=== PATIENT | male | born 1940 | race Asian ===

== ENCOUNTER 2018-11-26 00:13 | Emergency (ER) | payer MEDICARE, OTHER ==
[~2018-11-26] VITALS: Ht 162.6 cm; Wt 58.1 kg
[2018-11-26 00:13] VITALS: BP 173/68
[~2018-11-26 00:13] MED LIST: AZITHROMYCIN250 MG ORAL; IBUPROFEN600 MG ORAL
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
[2018-11-26] MEDS ORDERED: HYDROcodone/Acetamin 5/325 tab ORAL ONE (00:45)
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
[2018-11-26 01:20] VITALS: BP 153/70
--- NOTE | 2018-11-26 01:23 | NUR ---
ED Nurse Note: Patient relaxing with at bedside. No s/s of acute distress. Patient reports no pain at this time, vital signs stable and updated.
--- NOTE | 2018-11-26 01:48 | NUR ---
ED Nurse Note: Patient went down for Ct scans.
[2018-11-26 03:17] VITALS: BP 152/61
[2018-11-26] MEDS ORDERED: HYDROCODON-ACE1 EA15 ORAL (03:19)
[2018-11-26] MEDS ORDERED: IBUPROFEN600 MG ORAL (03:19)
--- NOTE | 2018-11-26 03:22 | NUR ---
ED Nurse Note: Patient has been cleared for discharge by ERMD. Patient verbalized understanding of discharge instructions. ID band removed. vital signs updated prior to departure. patient departed with all belongings.
--- NOTE | 2018-11-26 03:24 | NUR ---
ED Nurse Note: Patient will physically depart once results are back for his .
[2018-11-26 04:02] VITALS: BP 152/61
--- NOTE | 2018-11-26 09:26 | Diagnostic Imaging Report ---
Indication: Neck pain. Technique: Continuous helical imaging of the cervical spine was obtained transaxially from the skull base to the upper thoracic spine. 2-D coronal and sagittal reformatted images were obtained. Automatic Exposure Control was utilized. Total Dose length Product (DLP): 310.[address] Dose Index Volume (CTDIvol): 13.3 mGy Comparison: None Findings: There is no acute fracture or malalignment identified. There is no soft tissue swelling identified. Moderate uncovertebral arthritis is demonstrated at multiple levels. Some of the intervertebral discs show narrowing and osteophytes especially C5-6. This level also notable for mild foraminal stenosis. The bones are osteopenic. Calcification of the carotid arteries noted at the level the cervical spine in the neck. Impression: No acute injury Moderate spondylosis Atherosclerotic vascular disease [facility] has communicated the preliminary results to the Emergency Department. Their findings are largely concordant with this report. The CT scanner at [facility] is accredited by the [employer] and the scans are performed using dose optimization techniques as appropriate to a performed exam including Automatic Exposure control.
--- NOTE | 2018-11-26 09:34 | Diagnostic Imaging Report ---
Indication: Chest pain. Trauma Technique: Continuous helical transaxial imaging of the chest was obtained from the thoracic inlet to the upper abdomen. No intravenous contrast was administered. Coronal 2-D reformats were also obtained. Total Dose length Product (DLP): 1177.[address] Dose Index Volume (CTDIvol): 35.39 mGy Comparison: CTA chest 04/09/2016 Findings: There is a posterior dependent atelectasis seen is groundglass opacities and some linear reticular densities. The remainder of the lungs are essentially clear with the exception of some mild prominence of interstitium which was seen previously and likely chronic. There is no pneumothorax or compelling evidence for lung injury such as a contusion. There is no rib fracture, hematoma or evidence of a pleural effusion. The mediastinum is essentially clear without evidence of fluid or hematoma. The aorta is mildly calcified and ectatic. Preliminary reading suggested the possibility of a lung contusion at the apex of the right lung. While this is not entirely excludable, there are no associated injuries. This is a somewhat unusual location for lung contusion as well. Please correlate clinically. Suggest further evaluation and follow-up if needed. There is a pulmonary nodule that is about a centimeter noncalcified at the right lung base. This is seen on the 2016 examination and appears unchanged. The nodule may be disregarded given stability exceeding 2 years. Multiple gallstones are present. Accessory spleen noted. IMPRESSION: No compelling evidence for acute injury involving the chest. Patchy interstitial prominence within the lungs likely chronic Mild posterior basal atelectasis Gallstones Solitary pulmonary nodule in the right lung base unchanged from 2016. This may be disregarded per Fleischner Society criteria. Atherosclerotic vascular disease. The CT scanner at [facility] is accredited by the [employer] and the scans are performed using dose optimization techniques as appropriate to a performed exam including Automatic Exposure control.
--- NOTE | 2018-11-26 10:05 | Diagnostic Imaging Report ---
Indication: Headache and trauma Technique: Contiguous 5 mm thick transaxial imaging of the head obtained in a Siem[employer] Sensation [address] scanner. Soft tissue and bone windows generated. Automatic Exposure Control was utilized. Total Dose length Product (DLP): 1442.[address] Dose Index Volume (CTDIvol): 70.38 mGy Comparison: none Findings: There is moderate prominence of the ventricles, basal cisterns, and cerebral sulci consistent with atrophy. Moderate, nonspecific, white matter hypoattenuation is noted throughout the brain consistent with chronic small vessel disease. Patchy cystic foci noted within the perdue radiata and the left basal ganglia consistent with old lacunar infarcts. There are probable old bilateral subdural hematomas over the cerebral convexities. There is no midline shift, edema, acute hemorrhage, mass effect. Bones are unremarkable. Impression: No acute intracranial bleed, mass effect or edema. Small bilateral subdural collections likely old subdural hematomas. 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 Moderate atrophy of the brain. Evidence of chronic small vessel disease involving white matter tracts. [facility] has communicated the preliminary results to the Emergency Department. Their findings are largely concordant with this report. The CT scanner at [facility] is accredited by the [employer] and the scans are performed using dose optimization techniques as appropriate to a performed exam including Automatic Exposure control.
--- NOTE | 2018-11-26 10:37 | Diagnostic Imaging Report ---
INDICATION: Knee Pain COMPARISON: None 3 views of the left knee were obtained. FINDINGS: No acute fracture, malalignment, or joint effusion are identified. Joint space is relatively well-maintained. Impression: Negative for acute injury
--- NOTE | 2018-11-26 10:37 | Diagnostic Imaging Report ---
Indication: Pain Forearm pain Findings: 2 views of the left forearm were obtained. No acute fractures, malalignment, erosions or periostitis are identified. Soft tissues are unremarkable. Impression: Negative for acute injury.
== END 2018-11-26 04:02 | disposition home or self-care (01) ==
LOC: EDSEX 00:13 → EDBD 00:13 → EMR 01:09
DX: S09.90XA Unspecified injury of head, initial encounter (principal); S16.1XXA Strain of muscle, fascia and tendon at neck level, initial encounter; S27.321A Contusion of lung, unilateral, initial encounter; S20.212A Contusion of left front wall of thorax, initial encounter; S50.12XA Contusion of left forearm, initial encounter; S80.02XA Contusion of left knee, initial encounter; V43.52XA Car driver injured in collision with other type car in traffic accident, initial encounter; Y92.410 Unspecified street and highway as the place of occurrence of the external cause; I10 Essential (primary) hypertension
CPT/HCPCS: 70450; 71250; 72125; 99284